=== PATIENT | female | born 1965 | race Two or more races ===

== ENCOUNTER 2021-08-02 06:02 | Emergency (ER) | payer OTHER ==
[~2021-08-02] VITALS: Ht 157.5 cm; Wt 52.3 kg
[2021-08-02] MEDS ORDERED: pantoprazole 40 MG vial IV ONE (07:30)
[2021-08-02] MEDS ORDERED: normal saline 1000ML IV soln IVB ONE (07:30)
[2021-08-02] MEDS ORDERED: ondansetron/PF 4mg/2ml inj IV ONE (07:30)
[2021-08-02 08:16] LABS: BASOPHILS % (AUTO) 0.2 % (0-1); EOSINOPHILS % (AUTO) 0 % (0-6); HEMATOCRIT 41.2 % (35.0-45.0); HEMOGLOBIN 13.8 g/dl (12.0-16.0); LYMPHOCYTES # (AUTO) 0.4 X10'3 (1.1-4.8); LYMPHOCYTES % (AUTO) 11.3 % (21-51); MEAN CORPUSCULAR HEMOGLOBIN 30.7 PG (27.0-31.0); MEAN CORPUSCULAR HGB CONC 33.4 g/dL (33.0-36.5); MEAN CORPUSCULAR VOLUME 91.9 FL (78-98); MEAN PLATELET VOLUME 8.5 FL (7.4-10.4); MONOCYTES # (AUTO) 0.3 X10'3 (0-0.9); MONOCYTES % (AUTO) 7.2 % (2-12); NEUTROPHILS % (AUTO) 81.3 % (42-75); PLATELET COUNT 144 X10'3 (140-440); RED BLOOD COUNT 4.48 X10'6 (4.20-5.60); RED CELL DISTRIBUTION WIDTH 12.5 % (11.5-14.5); WHITE BLOOD COUNT 3.6 X10'3 (4.5-11.0)
[2021-08-02 08:29] LABS: ALANINE AMINOTRANSFERASE 57 U/L (12-78); ALBUMIN 3.5 G/DL (3.4-5.0); ALBUMIN/GLOBULIN RATIO 0.9 (1.1-1.5); ALKALINE PHOSPHATASE 74 IU/L (46-116); ANION GAP 11 (8-16); ASPARTATE AMINO TRANSFERASE 69 U/L (10-37); BILIRUBIN,TOTAL 0.3 MG/DL (0.1-1.0); BLOOD UREA NITROGEN 7 MG/DL (7-18); BUN/CREATININE RATIO 8.6 (6.6-38.0); CALCIUM 8.3 MG/DL (8.5-10.1); CHLORIDE 99 MMOL/L (99-107); CREATININE 0.81 MG/DL (0.40-0.90); GLUCOSE 97 MG/DL (70-104); LIPASE 85 U/L (73-393); SODIUM 137 MMOL/L (135-145); TOTAL CARBON DIOXIDE 27.3 MMOL/L (24-32); TOTAL PROTEIN 7.6 G/DL (6.4-8.2); eGFR 73 ML/MIN
[2021-08-02] MEDS ORDERED: PANT-47 PO (08:46)
[2021-08-02] MEDS ORDERED: ONDA8TAB13 PO (08:46)
[2021-08-02 09:21] VITALS: BP 94/53
== END 2021-08-02 09:24 | disposition home or self-care (01) ==
LOC: ER 06:04
DX: U07.1 COVID-19 (principal); K52.9 Noninfective gastroenteritis and colitis, unspecified; Z79.899 Other long term (current) drug therapy
CPT/HCPCS: 36415; 80053; 83690; 85025; 96361; 96374; 96375; 99284; C9113; J2405; J7030